=== PATIENT | male | born 1940 | race Caucasian/White ===

== ENCOUNTER 2016-08-06 08:21 | Day surgery (SDC) | payer MEDICARE, BC ==
[~2016-08-06 08:21] MED LIST: Acetaminophen TAB* 325 MG PO PRN; Buffered Lidocaine 0.9% SYRIN* 5 ML/SYR SYRINGE INTRADERM ONE
[2016-08-06] MEDS ORDERED: Midazolam* 1 MG/ML 2 ML VIAL (2 MG) ONE ×2 (10:53→11:31)
[2016-08-06] MEDS ORDERED: Trypan Blue 0.06% SOL* 0.5 ML BTL ONE (10:58)
[2016-08-06] MEDS ORDERED: fentaNYL* 50 MCG/ML 2 ML VIAL (100 MCG VIAL) ONE (11:08)
[2016-08-06] MEDS ORDERED: BSS OPTH.SOL* BTL ONE (11:43)
[2016-08-06 12:33] VITALS: BP 140/68
[2016-08-06] MEDS ORDERED: Lidocaine 1% MPF* 2 ML VIAL ONE (13:56)
[2016-08-06] MEDS ORDERED: Proparacaine 0.5% OPHTH.SOL* 15 ML BTL ONE (13:56)
[2016-08-06] MEDS ORDERED: Neomycin/Polymy/Dex OPTH.SUSP* MAXITROL 0.1% 5 ML ONE (13:56)
[2016-08-06] MEDS ORDERED: acetaZOLAMIDE TAB* 250 MG ONE (13:56)
[2016-08-06] MEDS ORDERED: Phenylephrine 2.5% OPTH.SOL* 2 ML BTL ONE (13:56)
[2016-08-06] MEDS ORDERED: Buffered Lidocaine 0.9% SYRIN* 5 ML/SYR SYRINGE ONE (13:56)
[2016-08-06] MEDS ORDERED: Cyclopentolate 1% OPTH.SOL* 2 ML BTL ONE (13:56)
[2016-08-06] MEDS ORDERED: Lidocaine 1% MPF wEPI 200,000* 30 ML SDV ONE (13:56)
[2016-08-06] MEDS ORDERED: Flurbiprofen 0.03% OPTH.SOL* 2.5 ML BTL ONE (13:56)
[2016-08-06] MEDS ORDERED: Povidone Iodine 5% OPTH* 30 ML BTL ONE (13:56)
--- NOTE | 2016-08-07 08:07 | OP ---
DATE OF OPERATION: 08/06/16 - [facility] DATE OF : 40 SURGEON: Kamari Walton M.D. PREOPERATIVE DIAGNOSIS: Cataract right eye. POSTOPERATIVE DIAGNOSIS: Cataract right eye. OPERATIVE PROCEDURE: Phacoemulsification right eye with IOL. DESCRIPTION OF PROCEDURE: The patient was brought to the operating room after being given 1/2% Alcaine with epinephrine drops in the preoperative area. The eye was prepped and draped in the usual sterile fashion. Sterile drape and eyelid speculum were placed. Again, topical 1/2% Alcaine with epinephrine was given. A paracentesis incision was made at the 9 o'clock position with the No.75 blade. Clear cornea incision 2.2 x 2.2-mm was created at the 12 o'clock position starting at the anterior limbus using the 2.2-mm keratome. The anterior chamber was irrigated with 0.4 mL of 1% non-preservative intracameral lidocaine and filled with DisCoVisc. A capsulorrhexis was completed using the cystotome and the Utrata forceps. Hydrodissection was performed with balanced salt solution. The lens nucleus was removed with the Phacoemulsification handpiece without incident. Cortex was removed with the irrigation-aspiration handpiece. The capsular bag was re-inflated using DisCoVisc and an [id number] implant was inserted with the shooter. The irrigation-aspiration handpiece was used to remove all residual DisCoVisc. The eye was refilled with balanced salt solution and the wound checked and found to be watertight. Topical Maxitrol drops were given. Of note, VisionBlue was used to stain the anterior capsule prior to capsulorrhexis and extremely dense cataract with a white cortex. The indication for complex cataract surgery, right cataract requiring capsular dye. [id number]/[facility] #: [id number] [facility]ITAL[facility]ik
== END 2016-08-06 12:25 | disposition home or self-care (01) ==
LOC: OREAST 08:21
PROVIDERS: ATTEND Specialist
DX: H25.11 Age-related nuclear cataract, right eye (principal); I48.91 Unspecified atrial fibrillation; J45.909 Unspecified asthma, uncomplicated
CPT/HCPCS: A9270-GY; J2001; J2250; J3010; V2632